=== PATIENT | female | born 1995 | race Native Hawaiian/Other Pacific Islander ===

== ENCOUNTER 2016-12-09 17:03 | Emergency (ER) | payer OTHER ==
[~2016-12-09] VITALS: Ht 170.2 cm; Wt 122.5 kg
--- NOTE | ~2016-12-09 | EKG ---
[address] [place] [address] ELECTROCARDIOGRAM REPORT Name: HILLARY FELTON Room #: [facility] Alvarado#: [id number] Admission: 12/09/16 Attend Phys: Discharge: 12/09/16 Date of : [birth year] Report #: [id number] THIS REPORT FOR: //name// [facility] ED Test Date: 2016-12-09 Test Time: 17:59:11 Pat Name: HILLARY FELTON Department: Room: Gender: F General Internist And Physician Leader: NADEEM : 1995 Requested By: Norma Sheppard Order Number: [id number] MD: Claudio Louis Measurements Intervals Windfall Rate: 97 P: 47 NH: 176 QRS: -13 QRSD: 101 T: 24 QT: 337 QTc: 428 Interpretive Statements Sinus rhythm ST elev, probable normal early repol pattern No previous ECG available for comparison Electronically Signed On 12-12-2016 13:27:54 CDT by Claudio Louis [email or web address] <ELECTRONICALLY SIGNED> By: Claudio Louis MD, [facility] 12/12/16 1327 1759 1759 Claudio Louis MD, FACC /EPI
[2016-12-09] MEDS ORDERED: MEDROL DOSPAK21 TAB PO (18:28)
[2016-12-09] MEDS ORDERED: EPIPEN 2-P0.3 MG/0.3 IM (18:28)
[2016-12-09 18:54] VITALS: BP 138/95
== END 2016-12-09 18:58 | disposition home or self-care (01) ==
LOC: ER 17:03
DX: T78.1XXA Other adverse food reactions, not elsewhere classified, initial encounter (principal); Z98.890 Other specified postprocedural states; Z88.0 Allergy status to penicillin; Z91.018 Allergy to other foods; X58.XXXA Exposure to other specified factors, initial encounter